=== PATIENT | male | born 1930 | race Caucasian/White ===

== ENCOUNTER → 2020-04-03 | Outpatient (CLI) | payer MEDICARE ==
--- NOTE | 2020-04-03 14:20 | XR ---
EXAM TYPE: LUMBAR SPINE X RAY SERIES COMPARISON: NONE HISTORY: Low back pain TECHNIQUE: 3 views are submitted. FINDINGS: Alignment is anatomic. The pedicles are intact. The transverse processes are intact. There is cart ilage of the spine with severe multilevel degenerative disc disease involving levels L2-S1 with moder ate changes seen at the thoracolumbar junction. Vascular calcifications are seen. There is multilevel facet arthropathy. IMPRESSION: 1. Severe multilevel degenerative disc disease.
[2020-04-03 14:56] LABS: C Reactive Protein <5.0 mg/L (<10.0)
--- NOTE | 2020-04-03 15:08 | CT ---
EXAMINATION TYPE: CT lumbar spine wo con DATE OF EXAM: 04/03/2020 COMPARISON: Plain film same date HISTORY: Paraparesis of both lower limbs CT DLP: 943 mGycm Automated exposure control for dose reduction was used. An unenhanced CT of the lumbar spine was performed. Bone and soft tissue window settings are submitt ed as well as coronal and sagittal reconstructions. FINDINGS: There is a spinal curvature is noted on plain film, there is multilevel spondylosis. Loss of disc hei ght is present intervertebral levels with associated vacuum phenomenon. Lumbar vertebral bodies show preserved height. No evident spondylolysis. There is a retroaortic left renal vein. Difficult to exclude a small adenoma or hyperplasia of the le ft adrenal gland. 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 L1-L2: There is facet arthropathy change. No significant spinal stenosis. There is a posterior broad- based disc bulge causing mild anterior mass effect on the thecal sac. No evident foraminal encroachme nt. L2-L3: Posterior extension endplate disc complex causes anterior mass effect on the thecal sac. Circu mferential extension of endplate disc complex results in some foraminal encroachment. There is facet arthropathy change with hypertrophy ligamentum flavum causing some posterior lateral mass effect on t he thecal sac. L3-L4: Posterior extension of endplate disc complex causes anterior mass effect on the thecal sac. Th ere is hypertrophy ligamentum flavum causing some posterior lateral mass effect on the thecal sac, mi ld spinal stenosis. Circumferential extension endplate disc complex results in foraminal encroachment greater on the right than on the left. L4-L5: Posterior extension endplate disc complex causes anterior mass effect on the thecal sac causin g moderate to possibly severe spinal stenosis. Circumferential extension endplate disc complex result s in foraminal encroachment greater on the right than on the left. Facet arthropathy with hypertrophy ligamentum flavum causes posterior lateral mass effect on the thecal sac. L5-S1: Posterior extension endplate disc complex causes anterior mass effect on the thecal sac. There is no significant spinal stenosis. Circumferential extension endplate disc complex encroaches somewh at on the neural foramen greater on the right. IMPRESSION: Degenerative disc disease, facet arthropathy, and multilevel foraminal encroachment, scoliosis. Addit ional findings above.
== END | disposition home or self-care (01) ==
LOC: RADCTMAIN 13:29
DX: M48.061 Spinal stenosis, lumbar region without neurogenic claudication (principal); M51.37 Other intervertebral disc degeneration, lumbosacral region; M41.9 Scoliosis, unspecified; G82.20 Paraplegia, unspecified
CPT/HCPCS: 72100; 72131; 82607; 83519; 85652; 86140

== ENCOUNTER 2020-05-18 07:57 | Day surgery (SDC) | payer MEDICARE ==
[2020-05-12 11:34] VITALS: BMI 26.6
[~2020-05-18 07:57] MED LIST: LACTATED RINGERS 1,000 ML IV SCH; SODIUM CHLORIDE 0.9% 1,000 ML IV SCH; ceFAZolin 1,000 MG in SODIUM CHLORIDE 0.9% IRRIGATIO 250 ML IRRIGATION ONE
[2020-05-18 08:22] VITALS: RESP 16; TEMP 98.2
[2020-05-18 08:32] LABS: Basophils # (A) 0.1 k/uL (0-0.2); Basophils % (A) 1 %; Eosinophils # (A) 0.2 k/uL (0-0.7); Eosinophils % (A) 3 %; HCT 35.8 % (39.0-53.0); HGB 12.5 gm/dL (13.0-17.5); Lymphocytes # (A) 1.2 k/uL (1.0-4.8); Lymphocytes % (A) 15 %; MCH 34.2 pg (25.0-35.0); MCHC 34.9 g/dL (31.0-37.0); Mean Platelet Volume 7.1; Monocytes # (A) 0.6 k/uL (0-1.0); Monocytes % (A) 8 %; Neutrophils # (A) 5.6 k/uL (1.3-7.7); Neutrophils % (A) 71 %; Platelet Count 249 k/uL (150-450); RBC 3.65 m/uL (4.30-5.90); RDW 11.9 % (11.5-15.5); WBC 7.9 k/uL (3.8-10.6)
[2020-05-18 08:40] LABS: Calcium 9.5 mg/dL (8.4-10.2); Potassium 4.6 mmol/L (3.5-5.1)
[2020-05-18 09:57] VITALS: BP 152/83; PULSE 81
--- NOTE | 2020-05-18 10:18 | P.PCN ---
Preoperative Diagnosis: Procedure canceled for today Patient is awaiting biventricular pacemaker generator change for normal battery depletion Patient tripped and fell and bruised the left shoulder and left pectoral area The whole area around the pacemaker site is bruised today No tenderness No swelling no hematoma This is a [employer] biventricular pacemaker that was interrogated Battery voltage 2.57, MICHELLE at 2.62 Atrial pacing threshold 0.5 V at 0.4 ms, P waves 4.5 mV, pacing impedance 430 ohms RV pacing threshold 1 V at 0.8 ms, patient is complete heart block, pacing impedance 410 ohms LV pacing threshold 2 V at 1 ms in 3-M2, pacing impedance 1000 ohms Stable impedances Grafts were reviewed Pacemaker programmed to DDD 50 Plan Defer this to degenerative change until about 2 weeks, to the area heals up I will reschedule the patient This was discussed with the patient Message was left with the patient's son He will go home today continue his home medications and I will see him again in about 2 weeks or so Message left with the corporate scheduler
== END 2020-05-18 11:40 | disposition home or self-care (01) ==
LOC: CATHEP 07:57
PROVIDERS: ATTEND Internal Medicine Clinical Cardiac Electrophysiology
DX: Z45.02 Encounter for adjustment and management of automatic implantable cardiac defibrillator (principal); Z53.8 Procedure and treatment not carried out for other reasons; I44.2 Atrioventricular block, complete; W01.0XXA Fall on same level from slipping, tripping and stumbling without subsequent striking against object, initial encounter; I10 Essential (primary) hypertension; E78.5 Hyperlipidemia, unspecified; G47.33 Obstructive sleep apnea (adult) (pediatric); Z99.89 Dependence on other enabling machines and devices; Z79.82 Long term (current) use of aspirin; Z79.899 Other long term (current) drug therapy; Z98.52 Vasectomy status
CPT/HCPCS: 80048; 85025

== ENCOUNTER 2020-06-11 06:26 | Day surgery (SDC) | payer MEDICARE ==
[2020-06-05 15:28] VITALS: BMI 25.8
[~2020-06-11 06:26] MED LIST changes: -ceFAZolin 1,000 MG in SODIUM CHLORIDE 0.9% IRRIGATIO 250 ML IRRIGATION ONE
[2020-06-11] MEDS ORDERED: ceFAZolin 1 GM in SODIUM CHLORIDE 0.9% 250 ML IRRIGATION PRN (07:00)
[2020-06-11 07:23] VITALS: RESP 18; TEMP 97.8
[2020-06-11] MEDS ORDERED: diphenhydrAMINE 50 MG/ML 1 ML VIAL ONE (08:06)
[2020-06-11] MEDS ORDERED: fentaNYL (PF) 50 MCG/ML 2 ML AMP ONE (08:06)
[2020-06-11] MEDS ORDERED: PROPOFOL 10 MG/ML 20 ML VIAL IV ONE (08:06)
[2020-06-11] MEDS ORDERED: MIDAZOLAM 2 MG/2 ML VIAL ONE (08:06)
[2020-06-11] MEDS ORDERED: LIDOCAINE 1% INJ 10MG/ML (20 ML MDV) ONE (08:33)
[2020-06-11] MEDS ORDERED: LIDOCAINE 1% INJ 10MG/ML (20 ML MDV) SQ ONE ×2 (08:47→08:51)
[2020-06-11] MEDS ORDERED: ACETAMINOPHEN TAB 325 MG TAB PO PRN (09:45)
--- NOTE | 2020-06-11 09:45 | P.PCN ---
Preoperative Diagnosis: Cinefluoroscopy of the leads Cinefluoroscopy of the pacemaker leads was performed. Right atrial lead was screwed in the right atrial appendage RV lead was screwed in the RV septum and the LV lead was in the lateral LV vein No fractures or breaks noted Plan proceed with biventricular pacemaker generator change
--- NOTE | 2020-06-11 10:16 | CE ---
CARDIAC ELECTROPHYSIOLOGY REPORT Hao Quinteros is an 89-year-old male patient who has complete heart block. He has a biventricular pacemaker implanted which is at MICHELLE, normal battery depletion. He was scheduled for a pacemaker generator change. Patient was brought to the EP lab in a fasting state. Written informed consent was obtained prior to the procedure. The left shoulder area was prepped and draped as per protocol and 1% lidocaine was used for local anesthesia. A 4 cm incision was made exactly over the previous surgical site and carried down to the level of the generator. The generator was explanted. A partial capsulectomy was performed and the new generator was implanted. Leads were interrogated. The new generator was a Quadra Allure [id number], model number [id number], serial number [id number], [employer]. The leads were interrogated and the sensing and pacing thresholds and the impedances were stable. The wound was then closed in 3 layers and dressed per protocol. The device was then programmed to DDDR mode with biventricular pacing, DDDR mode at 50-130 ppm with normal AV delay. Patient tolerated the procedure well without any acute complications. MMODL / IJN: [id number] /
[2020-06-11] MEDS ORDERED: ACETAMINOPHEN IV (For NPO) 1,000 MG in EMPTY BAG 1 BAG IVPB ONE (13:30)
[2020-06-11 15:23] VITALS: BP 154/72; PULSE 86
[2020-06-11] MEDS ORDERED: carvediloL 6.25 MG TAB PO SCH (17:30)
[2020-06-12] MEDS ORDERED: SPIRONOLACTONE 25 MG TAB PO SCH (09:00)
[2020-06-12] MEDS ORDERED: LOSARTAN 50 MG TAB PO SCH (09:00)
[2020-06-12] MEDS ORDERED: hydroCHLOROthiazide 12.5 MG CAP PO SCH (09:00)
== END 2020-06-11 14:13 | disposition home or self-care (01) ==
LOC: CATHEP 06:26
PROVIDERS: ATTEND Internal Medicine Clinical Cardiac Electrophysiology
DX: Z45.010 Encounter for checking and testing of cardiac pacemaker pulse generator [battery] (principal); I44.2 Atrioventricular block, complete; I42.0 Dilated cardiomyopathy; E78.5 Hyperlipidemia, unspecified; I13.0 Hypertensive heart and chronic kidney disease with heart failure and stage 1 through stage 4 chronic kidney disease, or unspecified chronic kidney disease; N18.30 Chronic kidney disease, stage 3 unspecified; I50.22 Chronic systolic (congestive) heart failure; I48.0 Paroxysmal atrial fibrillation; G47.33 Obstructive sleep apnea (adult) (pediatric); M19.90 Unspecified osteoarthritis, unspecified site; Z79.82 Long term (current) use of aspirin; Z79.899 Other long term (current) drug therapy; Z88.8 Allergy status to other drugs, medicaments and biological substances; Z97.2 Presence of dental prosthetic device (complete) (partial); Z85.820 Personal history of malignant melanoma of skin; Z82.49 Family history of ischemic heart disease and other diseases of the circulatory system
CPT/HCPCS: 33229; C2621; J2250; J1200; J0690; J2001; J3010; J2704